=== PATIENT | female | born 1985 | race Native Hawaiian/Other Pacific Islander ===

== ENCOUNTER 2018-04-29 16:49 | Emergency (ER) | payer SELFPAY ==
[2018-04-29] MEDS ORDERED: HALOPERIDOL LACTATE 5 MG/ML VIAL IM ONE (17:15)
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
[2018-04-29] MEDS ORDERED: LORazepam 2 MG/ML VIAL ONE (17:32)
[2018-04-29] MEDS ORDERED: diphenhydrAMINE HCL 50 MG/ML VIAL ONE (17:33)
[2018-04-29] MEDS ORDERED: LORazepam 2 MG/ML VIAL IM ONE (17:35)
[2018-04-29] MEDS ORDERED: diphenhydrAMINE HCL 50 MG/ML VIAL IM ONE (17:35)
[2018-04-29 18:52] VITALS: BP 113/64
== END 2018-04-29 18:40 | disposition home or self-care (01) ==
LOC: EDBD 16:49 → ED 16:49
DX: F25.9 Schizoaffective disorder, unspecified (principal); F20.9 Schizophrenia, unspecified
CPT/HCPCS: J1200; J1630; J2060; 96372; 99284